=== PATIENT | male | born 1990 | race Caucasian/White ===

== ENCOUNTER → 2018-05-19 | Outpatient (CLI) | payer OTHER | LOC: FIMAGING 10:00 | PROVIDERS: ATTEND Family Medicine | DX: M84.374A Stress fracture, right foot, initial encounter for fracture (principal); M77.51 Other enthesopathy of right foot and ankle; M72.2 Plantar fascial fibromatosis ==

== ENCOUNTER → 2019-01-18 | Outpatient (CLI) | payer OTHER | LOC: FIMAGING 12:35 ==